=== PATIENT | male | born 1995 | race Caucasian/White ===

== ENCOUNTER 2020-05-17 12:33 | Emergency (ER) | payer OTHER ==
[~2020-05-17] VITALS: Ht 170.2 cm; Wt 79.4 kg
[2020-05-17] MEDS ORDERED: LORAZEPAM INJ 2 MG/ML VIAL ONE ×2 (12:44→13:15)
--- NOTE | 2020-05-17 12:48 | NUR ---
BIB ra c/o aloc s/p multiple seizures today. On room air, breathing evenly and unlabored. patient still confused. seizure prec initiated. Connected to the monitor and pulse ox. kept comfortable, will continue to monitor accordingly.
[2020-05-17] MEDS ORDERED: LORAZEPAM INJ 2 MG/ML VIAL IVP ONE (13:00)
[2020-05-17 13:02] LABS: EOSINOPHILS % (AUTO) 0.1 % (0.0-6.0); HEMATOCRIT 55 % (39-51)
[2020-05-17 13:04] LABS: BASOPHILS # (AUTO) 0.1 /CMM (0.0-0.2); BASOPHILS % (AUTO) 0.4 % (0.0-2.0); HEMOGLOBIN 17.8 g/dL (13.5-17.5); LYMPHOCYTES # (AUTO) 3.6 /CMM (0.8-4.8); LYMPHOCYTES % (AUTO) 11.4 % (20.0-44.0); MEAN CORPUSCULAR HGB CONC 32 g/dl (31.0-36.0); MEAN CORPUSCULAR VOLUME 99 fL (80-96); MONOCYTES # (AUTO) 2.2 /CMM (0.1-1.30); MONOCYTES % (AUTO) 6.9 % (2.0-12.0); NEUTROPHILS # (AUTO) 25.7 /CMM (1.8-8.9); NEUTROPHILS % (AUTO) 81.2 % (43.0-81.0); PLATELET COUNT (AUTO) 372 /CMM (150-450)
[2020-05-17 13:09] LABS: WHITE BLOOD COUNT (AUTO) 31.7 K/uL (4.3-11.0)
[2020-05-17 13:12] LABS: ALCOHOL, BLOOD < 3 mg/dL (0-0); CALCIUM, SERUM 9.9 mg/dL (8.5-10.1); CARBON DIOXIDE 11 mmol/L (21-32); CHLORIDE 111 mmol/L (98-107); CREATININE 2.2 mg/dL (0.6-1.3); GLUCOSE 106 mg/dL (74-106); POTASSIUM 4.9 mmol/L (3.5-5.1); SODIUM SERUM 153 mmol/L (136-145); UREA NITROGEN, BLOOD 14 mg/dL (7-18)
[2020-05-17] MEDS ORDERED: LORAZEPAM INJ 2 MG/ML VIAL IV ONE (13:30)
--- NOTE | 2020-05-17 13:35 | NUR ---
wheeled patient via maximo accomanied by Courseload for ct
[2020-05-17 14:18] LABS: BAND % (MANUAL) 3 % (0.0-5.0); LYMPHOCYTES % (MANUAL) 13 % (16-48); MONOCYTES % (MANUAL) 5 % (0-11.0); NEUTROPHILS % (MANUAL) 79 (42-76)
[2020-05-17 16:17] VITALS: BP 131/81
--- NOTE | 2020-05-17 16:18 | NUR ---
Patient discharged to home in stable condition. Written and verbal after care instructions given. Patient mother (Lynette) verbalizes understanding of instruction.IV removed. Catheter intact and site benign. Pressure and 4x4 applied to site. No bleeding noted.
== END 2020-05-17 16:17 | disposition home or self-care (01) ==
LOC: ER 12:41
DX: G40.909 Epilepsy, unspecified, not intractable, without status epilepticus (principal); F12.90 Cannabis use, unspecified, uncomplicated
CPT/HCPCS: 36415; 70450; 80048; 80320; 85007; 85025; 96374; 96376; 99284; J2060 ×2; G0480

== ENCOUNTER 2021-05-27 11:46 | Inpatient (IN) | payer OTHER ==
[~2021-05-27] VITALS: Ht 175.3 cm; Wt 83.9 kg
[2021-05-27] VITALS (20 sets, daily range): BP systolic 94–118; BP diastolic 50–69
[2021-05-27] MEDS ORDERED: LORAZEPAM INJ 2 MG/ML VIAL ONE ×2 (11:58→12:06)
[2021-05-27] MEDS ORDERED: phenytoin SODIUM IV 500 MG in IV NS 0.9% 50 ML IV ONE (12:00)
[2021-05-27] MEDS ORDERED: LEVETIRACETAM (500MG) 500 MG in IV NS 0.9% 100 ML IV ONE (12:00)
[2021-05-27] MEDS ORDERED: LORAZEPAM INJ 2 MG/ML VIAL IM ONE (12:00)
[2021-05-27] MEDS ORDERED: IV NS 0.9% 1,000 ML BAG IV ONE ×2 (12:00→14:00)
[2021-05-27] MEDS ORDERED: phenytoin SODIUM IV 250 MG/5 ML VIAL IV ONE (12:13)
--- NOTE | 2021-05-27 12:15 | NUR ---
SHANE GARCIAS From Home "Seizure per parent had 7 seizures since last night" DROWSY ON ARRIVAL, OPENS EYES- DISORIENTED.
--- NOTE | 2021-05-27 12:16 | NUR ---
PATIENT HAD A SEIZURE TONIC-CLONIC FOR 1MIN. AT BED SIDE
[2021-05-27] MEDS ORDERED: ACETAMINOPHEN 650 MG/SUPP.RECT RC ONE ×2 (12:26→13:00)
[2021-05-27] MEDS ORDERED: CEFTRIAXONE 2 G in IV D5W 50 ML IV ONE (12:30)
[2021-05-27] MEDS ORDERED: LORAZEPAM INJ 2 MG/ML VIAL IV ONE (12:30)
[2021-05-27] MEDS ORDERED: VANCOMYCIN 1 GM in IV D5W 250 ML IV ONE (12:30)
[2021-05-27 12:33] LABS: BASOPHILS % (AUTO) 0.2 % (0.0-2.0); HEMATOCRIT 49 % (39-51); LYMPHOCYTES # (AUTO) 2.3 K/uL (0.8-4.8); MEAN CORPUSCULAR HGB CONC 33 g/dl (31.0-36.0); MEAN CORPUSCULAR VOLUME 95 fL (80-96); MONOCYTES # (AUTO) 0.7 K/uL (0.1-1.30); MONOCYTES % (AUTO) 4.1 % (2.0-12.0); NEUTROPHILS # (AUTO) 13.5 K/uL (1.8-8.9); NEUTROPHILS % (AUTO) 81.7 % (43.0-81.0); PLATELET COUNT (AUTO) 267 K/uL (150-450); RED BLOOD CELL COUNT(AUTO) 5.16 MIL/uL (4.5-6.0); WHITE BLOOD COUNT (AUTO) 16.5 K/uL (4.3-11.0)
[2021-05-27 12:48] LABS: PHENYTOIN (DILANTIN) 12.6 ug/ml (10.0-20.0)
[2021-05-27 12:56] LABS: ALBUMIN 4.5 g/dL (3.4-5.0); BILIRUBIN,DIRECT 0.1 mg/dL (0.0-0.2); BILIRUBIN,TOTAL 0.3 mg/dL (0.2-1.0); CALCIUM, SERUM 9.1 mg/dL (8.5-10.1); CREATININE 1.5 mg/dL (0.6-1.3); POTASSIUM 3.8 mmol/L (3.5-5.1); TOTAL PROTEIN, SERUM 7.8 g/dL (6.4-8.2)
--- NOTE | 2021-05-27 12:59 | NUR ---
URINE SAMPLE SENT TO LAB.
[2021-05-27] MEDS ORDERED: SUCCINYLCHOLINE CHLORIDE 20 MG/ML VIAL IV ONE (13:00)
[2021-05-27] MEDS ORDERED: ETOMIDATE 2 MG/ML VIAL IV ONE (13:00)
[2021-05-27] MEDS ORDERED: PROPOFOL 100 ML ONE ×2 (13:06→15:59)
--- NOTE | 2021-05-27 13:10 | NUR ---
PATIENT INTUBATED BY DR HICKS WITH ETOMIDATE 20MG. SUCCINYL 200MG. ET TUBE 7.5 AT 24CM. ON VENTILATOR A/C PRVC SETTING FIO2 100%, RATE 18, TIDAL VOL. 450. ON FROPOFOL INF. STARTED AT 5MCG/KG/MIN.
[2021-05-27] MEDS ORDERED: PROPOFOL 10MG/ML 50ML 50 ML IV PRN (13:30)
--- NOTE | 2021-05-27 14:09 | NUR ---
NURSING SUP GAVE BED 254.
--- NOTE | 2021-05-27 14:45 | NUR ---
PATIENT WENT FOR CT BRAIN VIA [facility]
--- NOTE | 2021-05-27 14:55 | NUR ---
X-RAY TECH. AT BED SIDE
--- NOTE | 2021-05-27 15:08 | NUR ---
CALLED [facility] FOR CT HEAD AND CHEST X RAY READING,
[2021-05-27 15:25] LABS: ABG BASE EXCESS -5.6 mmol/L; ABG PCO2 28.6 mmHg (35.0-45.0); ABG PH 7.407 (7.350-7.450); ABG PO2 382.8 mmHg (75.0-100.0); COHb 0.3 % (0.5-1.5); MetHb 0.6 % (0.0-1.5); O2Hb 98.7 % (94.0-97.0); SITE, ABG Right Radial; VENT MODE, BG AC 18 450 +5 100%
--- NOTE | 2021-05-27 15:29 | NUR ---
LP DONE BY DR HOPPER.
[2021-05-27] MEDS ORDERED: D5W IV ONE (15:30)
[2021-05-27] MEDS ORDERED: ACYCLOVIR IV ONE (15:30)
[2021-05-27] MEDS: PROPOFOL 100 ML IV PRN ×4 (15:50→22:30)
--- NOTE | 2021-05-27 15:52 | NUR ---
Nurse Knowledge Exchange with JAMES Cat. All questions answered. Transported to ICU w/RT and EMT
[2021-05-27] MEDS ORDERED: PROPOFOL 100 ML IV PRN ×2 (16:00→17:00)
--- NOTE | 2021-05-27 16:00 | NUR ---
ICU/RN PT IS ADMITTED FROM ER.HAD SEIZURES AT HOME AND ER.INCUBATED ON THE VENT.AC MODE,FIO2-100%,SAT O2-100%.V/S STABLE.T-101.7 RECTAL.VERY AGITATED.ON DIPRIVAN DRIP.DIPRIVAN DOSE INCREASED. OK INCREASED DIPRIVAN UP 100 MCG. F/C INSERTED.BILATERAL WRIST RESTRAINS .COOLING BLANKET ON.REPOSITION FOR COMFORT.
--- NOTE | 2021-05-27 16:24 | NUR ---
RT Male patient awake and agitated intubated @1310 in ER#5. ETT 7.5, 25cm@Lip secure and airway is patent. Alarms are audible, vent plugged into red outlet. Positive color change detected and bilateral b/s noted. Addendum: 05/27/21 at 1625 by NIGEL GARCIA RT Amended: Links added.
[2021-05-27] MEDS ORDERED: ONDANSETRON HCL/PF 4 MG/2 ML VIAL IVP PRN (16:30)
[2021-05-27] MEDS ORDERED: ACETAMINOPHEN 650 MG/SUPP.RECT RC PRN (16:30)
[2021-05-27] MEDS ORDERED: Z GUARD REMEDY 4 OZ OINT TP PRN (17:00)
[2021-05-27] MEDS ORDERED: VANCOMYCIN 1.5 GM in IV D5W 500 ML IV ONE (17:00)
[2021-05-27] MEDS ORDERED: DILANTIN (17:15)
[2021-05-27] MEDS ORDERED: LAMICTAL (17:15)
[2021-05-27] MEDS: IV LR 1000 ML 1,000 ML IV PRN (17:17)
[2021-05-27] MEDS: ENOXAPARIN SODIUM 40 MG/0.4 ML DISP.SYRIN SQ SCH (17:23)
[2021-05-27] MEDS ORDERED: ACETAMINOPHEN 650 MG/20 ML UDC- SA PATIENTS-FEVER ONLY GT PRN (17:30)
[2021-05-27] MEDS ORDERED: LORAZEPAM INJ 2 MG/ML VIAL IV STA (17:43)
[2021-05-27 17:48] LABS: CSF GLUCOSE 93 mg/dL (40-70); CSF PROTEIN 39.2 mg/dL (15-45)
--- NOTE | 2021-05-27 17:52 | NUR ---
RN NOTES ADMINISTERED ATIVAN 4 MG/ML IVF PUSH FOR SEIZURE. BP 102/54, P-94.
[2021-05-27] MEDS: ACETAMINOPHEN 650 MG/20.3 ML UDC GT PRN (18:05)
--- NOTE | 2021-05-27 18:05 | NUR ---
RN NOTE ADMINISTERED TYLENOL 650 MG/ML OGT FOR T-101.2F.
[2021-05-27] MEDS ORDERED: GABA-532 PO (18:46)
--- NOTE | 2021-05-27 19:50 | NUR ---
RN NOTE RECEIVED PATIENT IN BED, INTUBATED. ETT 7.5, 24 CM AT THE LIP. VENT SETTINGS ARE FOLLOWS AC:18, VT, 450, FIO2 60%. TOLERATING WELL. SATURATION OF 100%. PATIENT NOTED WITH MILD AGITATION. ON TELE MONITORING. SINUS RHYTHM. NOTED WITH OGT, CLAMPED. POSITIVE PLACEMENT VIA AUSCULTATION. NO FEEDING RUNNING. SKIN WARM AND DRY. NOTED WITH LEFT WRIST 20G, RIGHT UPPER ARM 20G, RIGHT WRIST 20G. CURRENTLY INFUSING LR AT 125 CC/HR AND PROPOFOL AT 90 MCG. NO INFILTRATION NOTED. BILATERAL SOFT WRIST RESTRAINTS PRESENT. BILATERAL RADIAL PULSES WNL. RODRÍGUEZ CATHETER DRAINING BY GRAVITY. YELLOW URINE. NO HEMATURIA. BED LOW, IN LOCKED POSITION, WILL CONTINUE TO MONITOR.
--- NOTE | 2021-05-27 20:01 | NUR ---
RN NOTE RECEIVED CALL FROM NEUROLOGY YORDY RICHARDS. PER , INCREASE DILANTIN FROM 100 MG IV Q8H TO 200 MG IV Q8H. NOTED AND CARRIED OUT. CALLED PHARMACY TO VERIFY.
[2021-05-27] MEDS: LamoTRIgine 100 MG TABLET NG SCH (20:15)
[2021-05-27] MEDS: CEFEPIME 2 GM in IV D5W 100 ML IV SCH (20:55)
[2021-05-27] MEDS ORDERED: PHENYTOIN SODIUM IV 100 MG/2ML VIAL IV SCH ×2 (21:00)
[2021-05-27] MEDS: ACYCLOVIR IV 1 GM in IV D5W 250 ML IV SCH (21:42)
[2021-05-28] VITALS (24 sets, daily range): BP systolic 95–132; BP diastolic 46–91
[2021-05-28] MEDS: IV LR 1000 ML 1,000 ML IV PRN ×4 (00:01→23:05)
[2021-05-28] MEDS ORDERED: DIATR MEGLU/DIATRIZOATE SODIUM 30 ML BOTTLE (GASTROGRAPHIN) ONE (00:07)
[2021-05-28] MEDS: PROPOFOL 100 ML IV PRN ×12 (00:31→23:23)
[2021-05-28] MEDS: LORAZEPAM INJ 2 MG/ML VIAL IV PRN ×2 (04:11→18:15)
[2021-05-28] MEDS: CEFEPIME 2 GM in IV D5W 100 ML IV SCH ×3 (04:19→21:00)
--- NOTE | 2021-05-28 04:23 | NUR ---
RN NOTE PATIENT NOTED WITH GENERALIZED SEIZURE LIKE MOVEMENTS, LASTING LESS THAN 1 MINUTE. SHIVERING LIKE MOVEMENT OF ALL FOUR EXTREMITIES. NO HEAD TURNING. HEAD OF BED ELEVATED. MOUTH SUCTIONED. KEPT SAFE FROM INJURIES. ADMINISTERED ATIVAN 2MG PER MD ORDER VIA IV ROUTE. VS ARE FOLLOWS, BP 128/74, HR 92, O2 100, RR 20, TEMP 99.2. WILL CONTINUE TO MONITOR.
[2021-05-28] MEDS ORDERED: PHENYTOIN SODIUM IV 100 MG/2ML VIAL ONE (04:53)
[2021-05-28] MEDS: NS 0.9% IV SCH ×3 (04:55→21:33)
[2021-05-28] MEDS: PHENYTOIN SODIUM IV SCH ×3 (04:55→21:33)
[2021-05-28 04:56] LABS: BASOPHILS % (AUTO) 0.3 % (0.0-2.0); EOSINOPHILS % (AUTO) 0.4 % (0.0-6.0); HEMATOCRIT 41 % (39-51); HEMOGLOBIN 13.7 g/dL (13.5-17.5); LYMPHOCYTES # (AUTO) 2.1 K/uL (0.8-4.8); LYMPHOCYTES % (AUTO) 25.3 % (20.0-44.0); MEAN CORPUSCULAR HGB CONC 34 g/dl (31.0-36.0); MEAN CORPUSCULAR VOLUME 93 fL (80-96); MONOCYTES # (AUTO) 1.1 K/uL (0.1-1.30); MONOCYTES % (AUTO) 13.6 % (2.0-12.0); NEUTROPHILS # (AUTO) 4.9 K/uL (1.8-8.9); NEUTROPHILS % (AUTO) 60.4 % (43.0-81.0); PLATELET COUNT (AUTO) 153 K/uL (150-450); RED BLOOD CELL COUNT(AUTO) 4.35 MIL/uL (4.5-6.0); WHITE BLOOD COUNT (AUTO) 8.2 K/uL (4.3-11.0)
[2021-05-28] MEDS: ACYCLOVIR IV 1 GM in IV D5W 250 ML IV SCH ×3 (05:27→20:00)
[2021-05-28] MEDS: VANCOMYCIN 1.25 GM in IV D5W 250 ML IV SCH ×2 (06:50→16:39)
--- NOTE | 2021-05-28 07:30 | NUR ---
RN OPENING NOTE PT RECEIVED IN BED IN BED. PT IS ON MECHANICAL VENT WITH ALL PRESCRIBED SETTINGS TOLERATING WELL WITH NO SIGNS OF DISTRESS OR LABORED BREATHING SAT 100%. PT IS SEDATED AT THIS TIME ON DIPRIVAN @90MCG/HR. OG IS IN PLACE WITH POSITIVE PLACEMENT AND CLAMPED. FC IS IN PLACE DRAINING URINE TO GRAVITY. IV ACCESS R AC INFUSING WITH LR @125ML/HR AND DIPRIVAN AT 90MCG/HR; R FOREARM; L WRIST. BED IS LOCKED IN LOWEST POSITION X2 BED RAILS UP AND ALL HOSPITAL SAFETY PROTOCOLS ARE IN PLACE. WILL CONTINUE TO MONITOR THIS SHIFT.
[2021-05-28 08:31] LABS: ALBUMIN 3.1 g/dL (3.4-5.0); BILIRUBIN,TOTAL 0.3 mg/dL (0.2-1.0); CALCIUM, SERUM 7.8 mg/dL (8.5-10.1); CREATININE 1.3 mg/dL (0.6-1.3); MAGNESIUM 2.4 mg/dL (1.8-2.4); PHOSPHORUS 2.9 mg/dL (2.5-4.9); POTASSIUM 3.5 mmol/L (3.5-5.1); TOTAL PROTEIN, SERUM 5.6 g/dL (6.4-8.2)
[2021-05-28] MEDS: LamoTRIgine 100 MG TABLET NG SCH ×2 (10:13→21:23)
[2021-05-28 12:09] LABS: THYROID STIMULATING HORMONE 1.109 uIU/mL (0.358-3.74)
[2021-05-28] MEDS: ENOXAPARIN SODIUM 40 MG/0.4 ML DISP.SYRIN SQ SCH (16:38)
--- NOTE | 2021-05-28 18:05 | NUR ---
RN NOTE: SEIZURE PT HAD SEIZURE AT THIS TIME AND 2MG ATIVAN GIVEN.
--- NOTE | 2021-05-28 19:59 | NUR ---
RN CLOSING NOTE PT IS IN BED IN BED. PT IS ON MECHANICAL VENT WITH ALL PRESCRIBED SETTINGS TOLERATING WELL WITH NO SIGNS OF DISTRESS OR LABORED BREATHING SAT 100%. PT IS SEDATED AT THIS TIME ON DIPRIVAN @90MCG/HR. OG IS IN PLACE WITH POSITIVE PLACEMENT AND CLAMPED. FC IS IN PLACE DRAINING URINE TO GRAVITY. IV ACCESS R UA MIDLINE INFUSING WITH LR @125ML/HR AND DIPRIVAN AT 90MCG/HR; R FOREARM; L WRIST. BED IS LOCKED IN LOWEST POSITION X2 BED RAILS UP AND ALL HOSPITAL SAFETY PROTOCOLS ARE IN PLACE. WILL ENDORSE TO RECYCLING ASSISTANT NURSE FOR ARTEMIO.
--- NOTE | 2021-05-28 20:00 | NUR ---
RN NOTE RECEIVED PATIENT IN BED, SEDATED, INTUABTED. ETT 7.5/24 CM AT THE LIP. VENT SETTINGS ARE FOLLOWS, AC 18, TV 450, FIO2 35%, PEEP 5. TOLERATING WELL WITH O2 SATURATION OF 100 PERCENT WITH GOOD WAVEFORMS. ON TELE MONITORING, SINUS RHYTHM. OGT IN PLACE. POSITIVE PLACEMENT VIA AUSCULTATION & X-RAY. CLAMPED. SKIN IS WARM AND DRY TO TOUCH. NOTED WITH AJAY MIDLINE, LEFT WRIST, RIGHT AC, RIGHT WRIST 20G. CURRENTLY INFUSING DIPRIVAN AT 90 MCG/KG/MIN, LR 125 CC/HR. NO INFILTRATION. BILATERAL SOFT WRIST RESTRAINTS. BILATERAL RADIAL PULSES WNL. PATIENT WITHDRAWS ARM FROM DEEP PAIN. RODRÍGUEZ CATHETER IN PLACE. INTACT. DRAINING YELLOW URINE. NO HEMATURIA NOTED. BED LOW, IN LOCKED POSITION, CALL LIGHT WITHIN REACH.
[2021-05-29] VITALS (41 sets, daily range): BP systolic 97–125; BP diastolic 45–85
[2021-05-29] MEDS: PROPOFOL 100 ML IV PRN ×8 (01:48→21:14)
[2021-05-29] MEDS: LORAZEPAM INJ 2 MG/ML VIAL IV PRN (03:01)
--- NOTE | 2021-05-29 03:12 | NUR ---
RN NOTE NOTED WITH GENERALIZED SEIZURE LIKE MOVEMENTS KEPT SAFE FROM INJURIES. MOUTH SUCTIONED. BP WNL. ADMINISTERED ATIVAN 2MG VIA IV PER MD ORDER. WILL CONTINUE TO MONITOR.
[2021-05-29] MEDS: ACYCLOVIR IV 1 GM in IV D5W 250 ML IV SCH ×3 (04:00→21:58)
[2021-05-29 04:37] LABS: BASOPHILS % (AUTO) 0.5 % (0.0-2.0); EOSINOPHILS % (AUTO) 1.8 % (0.0-6.0); HEMATOCRIT 37 % (39-51); HEMOGLOBIN 12.5 g/dL (13.5-17.5); LYMPHOCYTES # (AUTO) 1.3 K/uL (0.8-4.8); LYMPHOCYTES % (AUTO) 20.4 % (20.0-44.0); MEAN CORPUSCULAR HGB CONC 34 g/dl (31.0-36.0); MEAN CORPUSCULAR VOLUME 93 fL (80-96); MONOCYTES # (AUTO) 0.7 K/uL (0.1-1.30); MONOCYTES % (AUTO) 11.3 % (2.0-12.0); NEUTROPHILS # (AUTO) 4.1 K/uL (1.8-8.9); PLATELET COUNT (AUTO) 128 K/uL (150-450); RED BLOOD CELL COUNT(AUTO) 3.96 MIL/uL (4.5-6.0); WHITE BLOOD COUNT (AUTO) 6.2 K/uL (4.3-11.0)
[2021-05-29] MEDS: CEFEPIME 2 GM in IV D5W 100 ML IV SCH ×3 (04:58→21:31)
[2021-05-29] MEDS: IV LR 1000 ML 1,000 ML IV PRN ×3 (04:59→22:13)
[2021-05-29 05:15] LABS: PHENYTOIN (DILANTIN) 19.9 ug/ml (10.0-20.0)
[2021-05-29 05:21] LABS: CALCIUM, SERUM 7.9 mg/dL (8.5-10.1); MAGNESIUM 1.7 mg/dL (1.8-2.4); PHOSPHORUS 3.3 mg/dL (2.5-4.9); POTASSIUM 3.5 mmol/L (3.5-5.1)
[2021-05-29] MEDS: PHENYTOIN SODIUM IV SCH ×3 (05:30→20:52)
[2021-05-29] MEDS: NS 0.9% IV SCH ×3 (05:30→20:52)
[2021-05-29] MEDS: VANCOMYCIN 1.25 GM in IV D5W 250 ML IV SCH ×2 (06:01→17:06)
--- NOTE | 2021-05-29 07:30 | NUR ---
RN NOTES PT FOUND SEMI FOWLERS DISPLAYING NO S/S OF DISTRESS, FLACC = 0, RIKERS = 3 AND BILATERAL RISE AND FALL OF THE CHEST OBSERVED. R UA MIDLINE L FA 20G L AC 20G R FA 20G LINES ARE PATIENT AND INTACT. BILATERAL SOFT WRISTS ARE APPLIED, PULSES PALPATED AND CAP REFILL < 3 SECONDS BILATERALLY. RODRÍGUEZ CATH BELOW PATIENT AND DRAINING BY GRAVITY. VSS, RN WILL MONITOR AND TREAT THROUGHOUT SHIFT. SAFETY MEASURES IN PLACE, BED LOCKED AND IN LOWEST POSITION, SIDE RAILS UPX2, CALL LIGHT WITHIN REACH, BED ALARM ARMED.
[2021-05-29] MEDS: LamoTRIgine 100 MG TABLET NG SCH (08:49)
--- NOTE | 2021-05-29 09:05 | NUR ---
RN NOTE PT'S MOTHER REPORTED SEIZURE, RN ENTERED ROOM LESS THAN 4 SECONDS. MOTHER SAID IT WAS IN THE RIGHT LEG. RN OBSERVED NO SEIZURE ACTIVITY. RN REVEALED RIGHT LEG AND SAW NO MOVEMENT.
[2021-05-29] MEDS: Magnesium 1GM/D5W 100ML PREMIX 100 ML IV SCH ×2 (09:42→10:42)
--- NOTE | 2021-05-29 10:50 | NUR ---
MD COMMUNICATION RN SPOKE TO DR SCALES. GAVE ORDERS, LAMICTAL 300 MG GT TIMES ONE NOW. LAMICTAL 350 MG GT BID. RN ACKNOWLEDGED ORDERS AND WILL EXECUTE DIRECTED.
[2021-05-29] MEDS: JEVITY 1.2 CAL 1,000 ML BOTTLE GT PRN (11:17)
[2021-05-29] MEDS ORDERED: LamoTRIgine 100 MG TABLET GT ONE (11:30)
[2021-05-29] MEDS: ACETAMINOPHEN 650 MG/20.3 ML UDC GT PRN (16:08)
[2021-05-29] MEDS: ENOXAPARIN SODIUM 40 MG/0.4 ML DISP.SYRIN SQ SCH (17:08)
--- NOTE | 2021-05-29 19:26 | NUR ---
RN NOTES PT FOUND SEMI FOWLERS DISPLAYING NO S/S OF DISTRESS, FLACC = 0, RIKERS = 3 AND BILATERAL RISE AND FALL OF THE CHEST OBSERVED. R UA MIDLINE L FA 20G L AC 20G R FA 20G LINES ARE PATIENT AND INTACT. BILATERAL SOFT WRISTS ARE APPLIED, PULSES PALPATED AND CAP REFILL < 3 SECONDS BILATERALLY. RODRÍGUEZ CATH BELOW PATIENT AND DRAINING BY GRAVITY. SBAR AND REPORT GIVEN TO BILL RECAPITULATION CLERK RN, ALL QUESTIONS ANSWERED. SAFETY MEASURES IN PLACE, BED LOCKED AND IN LOWEST POSITION, SIDE RAILS UPX2, CALL LIGHT WITHIN REACH, BED ALARM ARMED. PT ENDORSED IN STABLE CONDITION FOR ARTEMIO.
--- NOTE | 2021-05-29 19:45 | NUR ---
RN NOTE RECEIVED PT ORALLY INTUBATED, CONNECTED TO VENT. WITH O2 SAT AT 100%. NO DISTRESS NOTED. ON PROPOFOL AT 75MCG/KG/MIN. LR AT 125ML/HR. OGT IN PLACE, AUSCULTATED, ON GT FEEDING OF JEVITY AT 20ML/HR, NO RESIDUALS WERE NOTED. HOB ELEVATED. RODRÍGUEZ IN PLACE, DRAINING YELLOW URINE OUTPUT. SOFT WRIST RESTRAINTS ON. WILL CONTINUE TO MONITOR.
[2021-05-29] MEDS: LamoTRIgine 100 MG TABLET GT SCH (21:03)
[2021-05-30] VITALS (42 sets, daily range): BP systolic 91–145; BP diastolic 49–100
[2021-05-30] MEDS: PROPOFOL 100 ML IV PRN ×10 (00:04→22:03)
[2021-05-30] MEDS: LORAZEPAM INJ 2 MG/ML VIAL IV PRN ×2 (00:23→03:07)
--- NOTE | 2021-05-30 00:32 | NUR ---
RN NOTE NOTED PT WITH SEIZURE, LASTING ABOUT 8MINS. SEIZURE PRECAUTION MAINTAINED. ATIVAN WAS GIVEN. WILL CONTINUE TO MONITOR.
--- NOTE | 2021-05-30 03:10 | NUR ---
RN NOTE NOTED WITH ANOTHER GENERALIZED SEIZURE. NO DISTRESS NOTED. ATIVAN GIVEN. WILL CONTINUE TO MONITOR.
[2021-05-30] MEDS: NS 0.9% IV SCH ×3 (04:04→20:37)
[2021-05-30] MEDS: PHENYTOIN SODIUM IV SCH ×3 (04:04→20:37)
[2021-05-30 04:13] LABS: CALCIUM, SERUM 7.9 mg/dL (8.5-10.1); MAGNESIUM 1.7 mg/dL (1.8-2.4); PHOSPHORUS 3.9 mg/dL (2.5-4.9); POTASSIUM 3.6 mmol/L (3.5-5.1)
[2021-05-30 04:15] LABS: BASOPHILS % (AUTO) 0.5 % (0.0-2.0); EOSINOPHILS % (AUTO) 2.6 % (0.0-6.0); HEMATOCRIT 38 % (39-51); HEMOGLOBIN 12.7 g/dL (13.5-17.5); LYMPHOCYTES # (AUTO) 1.6 K/uL (0.8-4.8); LYMPHOCYTES % (AUTO) 26.4 % (20.0-44.0); MEAN CORPUSCULAR HGB CONC 34 g/dl (31.0-36.0); MEAN CORPUSCULAR VOLUME 92 fL (80-96); MONOCYTES # (AUTO) 0.8 K/uL (0.1-1.30); MONOCYTES % (AUTO) 13.1 % (2.0-12.0); NEUTROPHILS # (AUTO) 3.4 K/uL (1.8-8.9); NEUTROPHILS % (AUTO) 57.4 % (43.0-81.0); PLATELET COUNT (AUTO) 129 K/uL (150-450); RED BLOOD CELL COUNT(AUTO) 4.08 MIL/uL (4.5-6.0)
[2021-05-30] MEDS: CEFEPIME 2 GM in IV D5W 100 ML IV SCH ×3 (04:44→20:05)
[2021-05-30] MEDS: ACYCLOVIR IV 1 GM in IV D5W 250 ML IV SCH ×4 (05:15→21:25)
[2021-05-30] MEDS: VANCOMYCIN 1.25 GM in IV D5W 250 ML IV SCH ×2 (06:15→16:45)
[2021-05-30] MEDS: IV LR 1000 ML 1,000 ML IV PRN ×2 (06:18→17:15)
--- NOTE | 2021-05-30 07:00 | NUR ---
RN NOTE RECEIVED PT ORALLY INTUBATED,SEDATED,RESPONDS TO PAINFUL STIMULI , ON DIPRIVAN AT 75MCG/KG/MIN, CONNECTED TO VENT. WITH O2 SAT AT 100%. NO DISTRESS NOTED. LR AT 125ML/HR. OGT IN PLACE, AUSCULTATED, ON GT FEEDING OF JEVITY AT 20ML/HR, NO RESIDUALS NOTED. HOB ELEVATED. RODRÍGUEZ IN PLACE, DRAINING YELLOW URINE OUTPUT. SOFT WRIST RESTRAINTS ON FOR PT SAFETY, WILL CONTINUE TO MONITOR. SR UP x3, CALL LIGHT WITHIN EASY REACH, BED LOCKED AND IN LOWEST POSITION, CONTINUE TO MONITOR.
--- NOTE | 2021-05-30 07:15 | NUR ---
RN NOTE PT TOLERATING VENT SETTINGS. NOTED 2X SEIZURE DURING SHIFT. SEIZURE PRECAUTION OBSERVED. ALL DUE IV ATBS GIVEN. SEIZURE MEDS GIVEN ORDERED. RODRÍGUEZ DRAINING WELL. CONTINUE ON PROPOFOL 75MCG/KG/MIN AND LR AT 125ML/HR. PT TOLERATES GT FEEDING, KEPT HOB ELEVATED. TURNED AND REPOSITIONED. ON FREQUENT CHECKS. ENDORSED TO NEXT SHIFT NURSE FOR ARTEMIO.
[2021-05-30] MEDS: LamoTRIgine 100 MG TABLET GT SCH (08:14)
--- NOTE | 2021-05-30 08:44 | NUR ---
RN NOTES NO SEDATION VACATION THIS AM , PER DR BOBO REA
[2021-05-30] MEDS: Magnesium 1GM/D5W 100ML PREMIX 100 ML IV SCH ×4 (10:04→23:04)
--- NOTE | 2021-05-30 11:00 | NUR ---
RN NOTES PT'S MOM AT THE BEDSIDE, PT TOLERATING TF WELL, NO DISTESS NOTED, ET TUBE SUCTIONING DONE, CONTINUE TO MONITOR.
[2021-05-30] MEDS: JEVITY 1.2 CAL 1,000 ML BOTTLE GT PRN (13:18)
--- NOTE | 2021-05-30 15:17 | NUR ---
RN NOTES REPORT GIVEN TO STEVIE RAMIREZ FOR CONTINUITY OF CARE .
--- NOTE | 2021-05-30 16:30 | NUR ---
RN/ICU-DR. SCALES HERE TO SEE PT., SPOKE TO FATHER REGARDING PT. PROGRESS/STATUS W/ ORDERS NOTED.
[2021-05-30] MEDS: ENOXAPARIN SODIUM 40 MG/0.4 ML DISP.SYRIN SQ SCH (16:44)
--- NOTE | 2021-05-30 17:30 | NUR ---
RN/ICU-ACADEMIC TUTOR HERE TO PERFORM EEG.
--- NOTE | 2021-05-30 17:46 | NUR ---
RN/ICU-PT. VOMITED MODERATE AMOUNT OF TUBE FEEDING, MEDICATED W/ ZOFRAN 4MGS. SIVP. WILL REASSESS FOR PRN EFFECTIVENESS.
[2021-05-30] MEDS: ACETAMINOPHEN 650 MG/20.3 ML UDC GT PRN (19:19)
--- NOTE | 2021-05-30 20:00 | NUR ---
ICU/RN: NEW IV STARTED ON RIGHT FOOT #20 GAGUE BY CERTIFIED PROFESSIONAL ERGONOMIST STEVIE. PT TOLERATED WELL.
[2021-05-30] MEDS ORDERED: LamoTRIgine 100 MG TABLET PO SCH (21:00)
--- NOTE | 2021-05-30 22:00 | NUR ---
ICU/RN: SPOKE WITH DR. HOPPER REGARDING PT MAGNESIUM LEVEL 1.7. NEW ORDERS RECIEVED AND CARRIED OUT.
[2021-05-31] VITALS (36 sets, daily range): BP systolic 100–130; BP diastolic 46–84
[2021-05-31] MEDS: Magnesium 1GM/D5W 100ML PREMIX 100 ML IV SCH ×2 (00:01→01:01)
[2021-05-31] MEDS: PROPOFOL 100 ML IV PRN ×10 (00:01→19:08)
[2021-05-31] MEDS: ACETAMINOPHEN 650 MG/20.3 ML UDC GT PRN (01:20)
[2021-05-31] MEDS: IV LR 1000 ML 1,000 ML IV PRN ×3 (01:23→18:02)
--- NOTE | 2021-05-31 03:58 | NUR ---
ICU/RN: WITNESSED PT EXPIERIENCE GENERALIZED SEIZURE FOR 2 MINS STARTING @0358 AND ENDING AT 0400. ATIVAN ADMINISTERED ORDERED.
[2021-05-31] MEDS: LORAZEPAM INJ 2 MG/ML VIAL IV PRN (04:02)
[2021-05-31] MEDS: CEFEPIME 2 GM in IV D5W 100 ML IV SCH ×2 (04:23→12:33)
[2021-05-31 04:51] LABS: EOSINOPHILS % (AUTO) 8.8 % (0.0-6.0); HEMATOCRIT 40 % (39-51); HEMOGLOBIN 13.6 g/dL (13.5-17.5); LYMPHOCYTES # (AUTO) 2.6 K/uL (0.8-4.8); LYMPHOCYTES % (AUTO) 35.3 % (20.0-44.0); MEAN CORPUSCULAR HGB CONC 34 g/dl (31.0-36.0); MEAN CORPUSCULAR VOLUME 93 fL (80-96); MONOCYTES # (AUTO) 1.3 K/uL (0.1-1.30); MONOCYTES % (AUTO) 17.6 % (2.0-12.0); NEUTROPHILS # (AUTO) 2.9 K/uL (1.8-8.9); NEUTROPHILS % (AUTO) 38.3 % (43.0-81.0); PLATELET COUNT (AUTO) 129 K/uL (150-450); RED BLOOD CELL COUNT(AUTO) 4.33 MIL/uL (4.5-6.0); WHITE BLOOD COUNT (AUTO) 7.5 K/uL (4.3-11.0)
[2021-05-31] MEDS: PHENYTOIN SODIUM IV SCH ×2 (04:57→12:22)
[2021-05-31] MEDS: NS 0.9% IV SCH ×2 (04:57→12:22)
[2021-05-31 05:14] LABS: MAGNESIUM 2.5 mg/dL (1.8-2.4); PHOSPHORUS 4.7 mg/dL (2.5-4.9); POTASSIUM 3.8 mmol/L (3.5-5.1)
[2021-05-31] MEDS: VANCOMYCIN 1.25 GM in IV D5W 250 ML IV SCH ×4 (05:26→16:25)
[2021-05-31] MEDS: ACYCLOVIR IV 1 GM in IV D5W 250 ML IV SCH ×2 (05:30→12:49)
--- NOTE | 2021-05-31 06:45 | NUR ---
ICU/RN: RIGHT FOOT #20 GAUGE IV DC'D.
--- NOTE | 2021-05-31 07:05 | NUR ---
MED NOTE: CAN NOT HANG 0500 VANCO PT ONLY HAS ONE MIDLINE AT THIS TIME AND VANCO ISNT COMPATIBLE WITH PROPOFOL.
--- NOTE | 2021-05-31 07:40 | NUR ---
ICU/RN PT IS INTUBATED AC MODE,FIO2-30%.SAT O2-99%. SEDATED WITH DIPRIVAN AT 100 MCG.HAS SEIZURES DISORDER.HAS DAILY SEIZURES.INTUBATED FOR AIRWAY PROTECTION .REACTIVE ON TOUCH AND SPEECH.V/S STABLE.AFEBRILE.NO PAIN REPORTED AT THIS TIME.BILATERAL SOFT WRIST RESTRAINS ON.RIGHT UPPER ARM MIDLINE.OG TUBE INFUSING JEVITY AT 20 ML/HR.WITH 100 ML RESIDUAL.F/C IN PLACE DRAINIG WITH YELLOW URINE.SUCTION PROVIDED.REPOSITION FOR COMFORT.LABS REVIEW.MD AWARE.CONTINUE MONITORING.
--- NOTE | 2021-05-31 08:53 | NUR ---
ICU/RN DUE MEDS ARE GIVEN ORDERED. SEDATION VACATION IS NOT PROVIDED.PT IS ON HIGH DOSE OF PROPOFOL.HAD SEIZURES ACTIVITY 4 AM FOR [address] BROUSSARD NO SEDATION VACATION.
[2021-05-31] MEDS ORDERED: LamoTRIgine 100 MG TABLET GT SCH (09:00)
--- NOTE | 2021-05-31 11:00 | NUR ---
ICU/RN NEW PICC LINE INSERTED ON THE RIGHT UPPER ARM.PT TOLERATED PROCEDURE WELL. OK TO USE.
[2021-05-31] MEDS ORDERED: ENOXAPARIN SODIUM 80 MG/0.8 ML DISP.SYRIN SQ SCH (14:00)
[2021-05-31] MEDS: JEVITY 1.2 CAL 1,000 ML BOTTLE GT PRN (16:25)
--- NOTE | 2021-05-31 16:45 | NUR ---
ICU/RN PM CARE PROVIDED.DUE MEDS ARE GIVEN ORDERED.
--- NOTE | 2021-05-31 19:20 | NUR ---
ICU/RN PT TRANSFERED TO IN STABLE CONDITION. ROOM 6113.REPORT GIVEN TO JASON /RN /ICU [phone].
== END 2021-05-31 19:22 | disposition short-term general hospital (02) | DRG 100 ==
LOC: ER 11:52 → ICU 15:50
PROVIDERS: ADMIT Nurse Practitioner Acute Care; ATTEND Family Medicine
PROC: 5A1955Z Respiratory Ventilation, Greater than 96 Consecutive Hours (ICD-10-PCS; principal; 2021-05-27)
PROC: 0BH18EZ Insertion of Endotracheal Airway into Trachea, Via Natural or Artificial Opening Endoscopic (ICD-10-PCS; 2021-05-27)
PROC: 00JU3ZZ Inspection of Spinal Canal, Percutaneous Approach (ICD-10-PCS; 2021-05-27)
PROC: 05H933Z Insertion of Infusion Device into Right Brachial Vein, Percutaneous Approach (ICD-10-PCS; 2021-05-29)
PROC: 02HV33Z Insertion of Infusion Device into Superior Vena Cava, Percutaneous Approach (ICD-10-PCS; 2021-05-31)
PROC: B548ZZA Ultrasonography of Superior Vena Cava, Guidance (ICD-10-PCS; 2021-05-31)
DX: G40.901 Epilepsy, unspecified, not intractable, with status epilepticus (principal); N17.0 Acute kidney failure with tubular necrosis; E87.2 Acidosis; M62.82 Rhabdomyolysis; D72.829 Elevated white blood cell count, unspecified; Z20.822 Contact with and (suspected) exposure to COVID-19; Z85.831 Personal history of malignant neoplasm of soft tissue; E83.42 Hypomagnesemia
CPT/HCPCS: 31720; 36410; 36415; 36569; 36600; 70450-TC; 71045-TC; 80048-TC; 80053-TC; 80061-TC; 80076-TC; 80175; 80185-TC; 80202-TC; 82550-TC; 82553; 82803-TC; 83605-TC; 83735-TC; 84100-TC; 84443-TC; 85025-TC; 86788; 86789; 87040-TC; 87070-TC; 87081-TC; 89051-TC; 93971-TC; 94003-TC; 94799-TC; 95819-TC; 99082-TC; G0378; J0133; J0692; J0696; J1165; J1650; J1953; J2060; J2405; J3370; J3475; J3490; J7030; J7050; J7060; J7120; Q9963